=== PATIENT | female | born 1980 | race African-American/Black ===

== ENCOUNTER 2022-02-07 12:25 | Emergency (ER) | payer OTHER, SELFPAY ==
--- NOTE | 2022-02-07 12:27 | ED.FEMALEGU ---
HPI - Female Genitourinary General Stated complaint: poss uti Time Seen by Provider: 02/07/22 12:28 Source: patient and RN notes reviewed History of Present Illness HPI Narrative: Patient is a 41-year-old female who presents the urgent care with complaints of possible UTI with 3 weeks of frequency of urination, urgency and now some lower suprapubic pressure and dysuria. Patient states that she developed left side pain as of last night. Denies of any history of UTIs. Patient is also concerned about possible elevated blood sugars. Patient does not have a history of diabetes but was on metformin for a brief period after giving to her last child. Patient has been taking cranberry pills and increasing cranberry juice for symptom relief. Denies of any fever, nausea or vomiting. No other acute complaints. No acute distress noted. Patient aware of the plan of care. Some parts of this dictation were generated by voice recognition software and may contain typographical and/or grammatical inaccuracies. Related Data Home Medications Medication Instructions Recorded Confirmed acyclovir 02/07/22 albuterol sulfate INHALATION 02/07/22 atorvastatin 02/07/22 atorvastatin 02/07/22 buspirone mg 02/07/22 cetirizine mg 02/07/22 clonazepam 02/07/22 escitalopram oxalate mg 02/07/22 flunisolide INTRANASAL 02/07/22 Allergies Allergy/AdvReac Type Severity Reaction Status Date / Time acetaminophen Allergy Unknown Itching Unverified 02/07/22 12:54 dextromethorphan Allergy Unknown Itching Unverified 02/07/22 12:54 guaifenesin Allergy Unknown Itching Unverified 02/07/22 12:54 phenylephrine Allergy Unknown Itching Unverified 02/07/22 12:54 Review of Systems Review of Systems: CONSTITUTIONAL: Denies fever, chills, or sweats. EYES: Denies visual changes, redness, or discharge. ENT: Denies rhinorrhea, congestion, sore throat, or otalgia. CARDIOVASCULAR: Denies chest pain, palpitations, or edema. RESPIRATORY: Denies cough or dyspnea. GASTROINTESTINAL: Denies abdominal pain, nausea, vomiting, or diarrhea. GENITOURINARY: Reports of urinary frequency, urgency, dysuria and suprapubic pressure SKIN: Denies rash or itching. MUSCULOSKELETAL: Denies back pain, joint pain, or myalgia. NEUROLOGIC: Denies headache, numbness, or weakness. All other systems reviewed are negative, except as documented in HPI. PMFSH Comments At the time of my signature, I reviewed and agree with the nursing past medical, surgical, social, and family history. There is no relevant family history pertinent to the patient complaint. Exam Narrative: GENERAL: This is a well-nourished, well-developed patient, in no apparent distress. HEAD: normocephalic, atraumatic. EYES: PERRL. Sclera clear/white. Vision is grossly intact. EARS: External ears normal NOSE: External nose normal with no obvious nasal discharge, nares without redness, no rhinorrhea. THROAT: Mucous membranes moist NECK: Neck supple CARDIOVASCULAR: Regular rate and rhythm without murmurs, gallops, or rubs. RESPIRATORY: Clear to auscultation. Breath sounds equal bilaterally. No wheezes, rales, or rhonchi. GASTROINTESTINAL: Abdomen soft, mild suprapubic tenderness, nondistended. Bowel sounds are active. SKIN: warm, intact with no suspicious lesions or rash, good texture and turgor. NEURO: awake, alert, and oriented to person, place and time. There were no obvious focal neurologic abnormalities. EXTREMITIES: No clubbing, cyanosis, or edema. BACK: Left CVA tenderness Course Course Level of Care: Express Care Visit Vital Signs Vital signs: Vital Signs Temperature 98.5 F 02/07/22 12:37 Pulse Rate 81 02/07/22 12:37 Respiratory Rate 16 02/07/22 12:37 Blood Pressure 119/80 02/07/22 12:37 Temperature 98.5 F 02/07/22 12:37 Pulse Rate 81 02/07/22 12:37 Respiratory Rate 16 02/07/22 12:37 Blood Pressure 119/80 02/07/22 12:37 Reviewed MDM - Female Genitourinary MDM Narrati
[2022-02-07 12:37] VITALS: BP 119/80; PULSE 81; RESP 16; TEMP 36.9
[2022-02-07 13:04] LABS: Glucose Point of Care 114 mg/dl (65-105)
== END 2022-02-07 13:05 | disposition home or self-care (01) ==
PROVIDERS: Emergency Provider Nurse Practitioner Family; PCP Family Medicine
DX: N39.0 Urinary tract infection, site not specified (principal)
CPT/HCPCS: 81003; 82948; 87077; 87086; 87088; 87186; 99203; G0463

== ENCOUNTER 2022-09-13 11:15 | Emergency (ER) | payer OTHER, SELFPAY ==
[2022-09-13 11:28] VITALS: BP 124/85; PULSE 97; RESP 18; TEMP 36.6; O2SAT 100
--- NOTE | 2022-09-13 14:18 | ED.URI ---
HPI - URI/Sore Throat General Chief Complaint: Upper Respiratory Infection Stated Complaint: cough tired Time Seen by Provider: 09/13/22 14:00 Source: patient, RN notes reviewed and old records reviewed Mode of arrival: ambulatory Limitations: no limitations History of Present Illness HPI Narrative: 41 year old female accompanied by ill son presents to express care with complaints of dry cough,fatigue, and body aches since yesterday morning. Patient reports no sore throat, no acute cough with wheezing, no shortness of breath. Patient reports that she does have history of asthma and has inhaler at home but has used for cough. Patient denies any known fevers chills or sweats. MD elicited complaint: cough and other (fatigue and body aches.) Onset (ago): day(s) (1) Treatments prior to arrival: acetaminophen and other (Mucinex D) Related Data Home Medications Medication Instructions Recorded Confirmed albuterol sulfate 90 mcg/actuation 90 mcg inhalation BID 02/07/22 09/13/22 aerosol inhaler atorvastatin 20 mg tablet 20 mg PO DAILY 02/07/22 09/13/22 buspirone 10 mg tablet 10 mg PO DAILY 02/07/22 09/13/22 cetirizine 10 mg tablet 10 mg PO DAILY 02/07/22 09/13/22 clonazepam 0.5 mg tablet 0.5 mg PO DAILY 02/07/22 09/13/22 escitalopram oxalate 20 mg tablet 20 mg PO DAILY 02/07/22 09/13/22 flunisolide 25 mcg (0.025 %) nasal 25 mcg intranasal BID 02/07/22 09/13/22 spray acyclovir 400 mg tablet 400 mg PO DAILY 09/13/22 09/13/22 Allergies Allergy/AdvReac Type Severity Reaction Status Date / Time acetaminophen Allergy Unknown Itching Unverified 09/13/22 13:19 dextromethorphan Allergy Unknown Itching Unverified 09/13/22 13:19 guaifenesin Allergy Unknown Itching Unverified 09/13/22 13:19 phenylephrine Allergy Unknown Itching Unverified 09/13/22 13:19 Review of Systems Review of Systems: CONSTITUTIONAL: Denies malaise, chills, sweats, or fever. EYES: Denies visual changes, redness, or discharge. ENT: Reports no rhinorrhea, congestion, sinus pain, otalgia and sore throat. CARDIOVASCULAR: Denies chest pain, palpitations, or edema. RESPIRATORY: Reports cough.? Denies dyspnea. GASTROINTESTINAL: Denies abdominal pain, nausea, vomiting, diarrhea SKIN: Denies rash or itching. MUSCULOSKELETAL: Reports myalgia. NEUROLOGIC: Denies headache. All systems reviewed & are unremarkable except as noted in HPI and below PMFSH Past Medical History Medical History (Updated 09/18/22 @ 13:03 by Phylicia Garcia NP) Anxiety and depression Asthma Elevated cholesterol Surgical History Surgical History (Updated 09/18/22 @ 12:57 by Phylicia Garcia NP) History of tonsillectomy Hx of appendectomy Previous section x2 Social History Social History (Updated 09/18/22 @ 12:57 by Phylicia Garcia NP) Smoking status: Never smoker Alcohol intake: unknown Substance use type: does not use Gender identity (if verbalized by the patient): Female Comments At time of signature, agree with nursing past medical, surgical, social and family history. There is no relevant family history pertinent to the presenting complaint Exam Narrative: GENERAL: Well-appearing, well-nourished, and in no acute distress. HEAD: Normocephalic EYES: PERRLA, conjunctivae clear ENT: Nares clear, turbinates edematous and erythematous, scant clear discharge. Mucous membranes moist. TM pearly olvera with dull light reflex bilaterally; no tragal tenderness. Oropharynx erythematous without lesions. Tonsils not present with no throat exudate, no drooling, no hoarseness, no trismus, uvula midline. NECK: Supple. No lymphadenopathy CHEST: Clear to auscultation, breath sounds equal. No wheezing, rhonchi, rales, or stridor. No respiratory distress, speaks in full sentences. dry cough SAO2 100% on room air HEART: Regular rate and rhythm. No murmur heard. SKIN: Warm, dry, no rash. NEURO: Alert and oriented x3. PSYCH: Normal mood and affect
== END 2022-09-13 14:31 | disposition home or self-care (01) ==
PROVIDERS: Emergency Provider Registered Nurse; PCP Family Medicine
DX: J06.9 Acute upper respiratory infection, unspecified (principal); R05.1 Acute cough; J45.909 Unspecified asthma, uncomplicated; E78.00 Pure hypercholesterolemia, unspecified; F41.9 Anxiety disorder, unspecified; F32.A Depression, unspecified
CPT/HCPCS: 87804; 99213; G0463

== ENCOUNTER 2023-01-21 17:47 | Emergency (ER) | payer OTHER, SELFPAY ==
[2023-01-21 17:53] VITALS: BP 141/75; PULSE 68; RESP 16; TEMP 36.6; O2SAT 100
--- NOTE | 2023-01-21 18:29 | ED.SKABFB ---
HPI - Skin/Abscess/Foreign Bdy General Chief complaint: Skin/Abscess/Foreign Body Stated complaint: bites on left hand and a few others Source: patient and RN notes reviewed History of Present Illness HPI narrative: [age] year male presents to urgent care with complaints of itchy red spots to her right fingers and right leg. Patient states she 1st noticed them yesterday morning. Patient reports some pain to these areas. Denies any fevers, chills, vomiting, chest pain, shortness of breath, or swelling. Patient did take a Benadryl earlier for the pain with moderate relief. Some parts of this dictation were generated by voice recognition software and may contain typographical and/or grammatical inaccuracies. Related Data Home Medications Medication Instructions Recorded Confirmed albuterol sulfate 90 mcg/actuation 90 mcg inhalation BID 02/07/22 01/21/23 aerosol inhaler atorvastatin 20 mg tablet 20 mg PO DAILY 02/07/22 01/21/23 buspirone 10 mg tablet 10 mg PO DAILY 02/07/22 01/21/23 cetirizine 10 mg tablet 10 mg PO DAILY 02/07/22 01/21/23 clonazepam 0.5 mg tablet 0.5 mg PO DAILY 02/07/22 01/21/23 escitalopram oxalate 20 mg tablet 20 mg PO DAILY 02/07/22 01/21/23 flunisolide 25 mcg (0.025 %) nasal 25 mcg intranasal BID 02/07/22 01/21/23 spray acyclovir 400 mg tablet 400 mg PO DAILY 09/13/22 01/21/23 Allergies Allergy/AdvReac Type Severity Reaction Status Date / Time acetaminophen Allergy Unknown Itching Unverified 01/21/23 17:59 dextromethorphan Allergy Unknown Itching Unverified 01/21/23 17:59 guaifenesin Allergy Unknown Itching Unverified 01/21/23 17:59 phenylephrine Allergy Unknown Itching Unverified 01/21/23 17:59 Review of Systems Review of Systems: Pertinent positives and pertinent negatives per HPI. [facility] Past Medical History Medical History (Updated 01/21/23 @ 18:31 by Mela Dumont APRN) Anxiety and depression Asthma Elevated cholesterol Surgical History Surgical History (Updated 09/18/22 @ 12:57 by Phylicia Garcia NP) History of tonsillectomy Hx of appendectomy Previous section x2 Social History Social History (Updated 09/18/22 @ 12:57 by Phylicia Garcia NP) Smoking status: Never smoker Alcohol intake: unknown Substance use type: does not use Living arrangements: with family Gender identity (if verbalized by the patient): Female Comments At the time of my signature, I reviewed and agree with the nursing past medical, surgical, social, and family history. There is no relevant family history pertinent to the patient complaint. Exam Narrative: GENERAL: This is a well-nourished, well-developed patient, in no apparent distress. HEAD: normocephalic, atraumatic. EYES: PERRL. Sclera clear/white. Vision is grossly intact. EARS: External ears normal, auditory canals clear and without drainage, TMs normal without perforation. Hearing grossly intact. NOSE: External nose normal with no obvious nasal discharge, nares without redness, no rhinorrhea. THROAT: Mucous membranes moist, posterior pharynx clear. NECK: Neck supple, non-tender without lymphadenopathy, masses or thyromegaly. CARDIOVASCULAR: Regular rate RESPIRATORY: No respiratory distress GASTROINTESTINAL: Abdomen soft, non-tender, nondistended. Bowel sounds are active. No hepato-splenomegaly, or palpable masses. No guarding. SKIN: erythremic, raised, welts to left 2nd and 3rd fingers as well as right posterior thigh and calf. no drainage. No induration or fluctuance. NEURO: awake, alert, and oriented to person, place and time. There were no obvious focal neurologic abnormalities. EXTREMITIES: No clubbing, cyanosis, or edema. No joint tenderness, effusion, or edema noted. Course Course Level of Care: Express Care Visit Vital Signs Vital signs: Vital Signs Temperature 98 F 01/21/23 17:53 Pulse Rate 68 01/21/23 17:53 Respiratory Rate 16 01/21/23 17:53 Blood Pressure 141/75 H 01/21/23 17:53 Pulse
== END 2023-01-21 18:35 | disposition home or self-care (01) ==
PROVIDERS: Emergency Provider Nurse Practitioner Family; PCP Family Medicine
DX: S60.461A Insect bite (nonvenomous) of left index finger, initial encounter (principal); S60.463A Insect bite (nonvenomous) of left middle finger, initial encounter; S70.361A Insect bite (nonvenomous), right thigh, initial encounter; W57.XXXA Bitten or stung by nonvenomous insect and other nonvenomous arthropods, initial encounter; J45.909 Unspecified asthma, uncomplicated; E78.00 Pure hypercholesterolemia, unspecified; F41.9 Anxiety disorder, unspecified; F32.A Depression, unspecified
CPT/HCPCS: 99211; G0463